=== PATIENT | female | born 1940 | race Caucasian/White ===

== ENCOUNTER → 2016-09-19 | Outpatient (CLI) | payer MEDICARE, OTHER ==
[~2016-09-19] MED LIST: ACID REDUCER 1150 MG PO; CLARITIN10 M2 PO; CYMBALTA 30 MG30 MG PO; HYDROCHLOROTHIA25 MG PO; KLOR-CON M1010 MEQ PO; LEVOTHYROXINE112 MCG PO; NORCO 5-325 TA1 EACH PO; OSTEO BI-FLEX1 EAC1 PO; PRAVACHOL20 MG PO; ROSADAN45 G1 TOP; TRAMADOL HCL50 MG PO; TRIAMCINOLONE A15 GM TP; TYLENOL 500 MG500 MG PO; TYLENOL PM EX-1 EACH PO; XARELTO10 MG PO
[2016-09-19 11:11] LABS: HEMOGLOBIN 11.6 gm/dl (12.3-15.3); RED BLOOD COUNT 4.07 M/UL (4.00-5.10); WHITE BLOOD COUNT 5.5 K/UL (4.5-11.0)
[2016-09-19 11:39] LABS: BUN/CREATININE RATIO 18 (0-10)
== END ==
LOC: EDSTATUS 10:00 → OPSV2 10:00
PROVIDERS: Orthopaedic Surgery
DX: Z01.810 Encounter for preprocedural cardiovascular examination (principal); Z01.812 Encounter for preprocedural laboratory examination; M17.12 Unilateral primary osteoarthritis, left knee
CPT/HCPCS: 36415; 71020; 80048; 81001; 85025; 87081; 93005

== ENCOUNTER 2016-10-02 07:45 | Inpatient (IN) | payer MEDICARE, OTHER ==
[~2016-10-02] VITALS: Ht 175.3 cm; Wt 79.4 kg
[2016-10-02] MEDS ORDERED: CYMBALTA 30 MG30 MG PO (10:45)
[2016-10-02] MEDS ORDERED: TYLENOL PM EX-1 EACH PO (10:45)
[2016-10-02] MEDS ORDERED: KLOR-CON M1010 MEQ PO (10:46)
[2016-10-02] MEDS ORDERED: TRAMADOL HCL50 MG PO (10:47)
[2016-10-02] MEDS ORDERED: ACID REDUCER 1150 MG PO (10:47)
[2016-10-02] MEDS ORDERED: CLARITIN10 M2 PO (10:47)
[2016-10-02] MEDS ORDERED: LEVOTHYROXINE112 MCG PO (10:48)
[2016-10-02] MEDS ORDERED: HYDROCHLOROTHIA25 MG PO (10:48)
[2016-10-02] MEDS ORDERED: TRIAMCINOLONE A15 GM TP (10:49)
[2016-10-02] MEDS ORDERED: ROSADAN45 G1 TOP (10:49)
[2016-10-02] MEDS ORDERED: PRAVACHOL20 MG PO (10:50)
[2016-10-02] MEDS ORDERED: OSTEO BI-FLEX1 EAC1 PO (10:51)
[2016-10-02] MEDS ORDERED: TYLENOL 500 MG500 MG PO (10:51)
[2016-10-03 06:50] LABS: RED BLOOD COUNT 2.84 M/UL (4.00-5.10); WHITE BLOOD COUNT 7.6 K/UL (4.5-11.0)
[2016-10-03 07:24] LABS: BUN/CREATININE RATIO 21 (0-10)
[2016-10-04 05:31] LABS: HEMOGLOBIN 8.5 gm/dl (12.3-15.3); RED BLOOD COUNT 3.04 M/UL (4.00-5.10); WHITE BLOOD COUNT 7.8 K/UL (4.5-11.0)
[2016-10-04 05:50] LABS: BUN/CREATININE RATIO 16 (0-10)
[2016-10-04] MEDS ORDERED: XARELTO10 MG PO (12:33)
[2016-10-04] MEDS ORDERED: NORCO 5-325 TA1 EACH PO (12:33)
== END 2016-10-04 14:15 | disposition home health service (06) | DRG 470 ==
LOC: ZOBSOF 10:02 → M/S 18:18
PROVIDERS: ADMIT Orthopaedic Surgery
PROC: 0SRD0J9 Replacement of Left Knee Joint with Synthetic Substitute, Cemented, Open Approach (ICD-10-PCS; principal; 2016-10-02 11:15)
DX: M17.12 Unilateral primary osteoarthritis, left knee (principal); D62 Acute posthemorrhagic anemia; I10 Essential (primary) hypertension; K21.9 Gastro-esophageal reflux disease without esophagitis; E07.9 Disorder of thyroid, unspecified; M41.9 Scoliosis, unspecified; M79.7 Fibromyalgia; R11.0 Nausea; Z79.899 Other long term (current) drug therapy; Z88.1 Allergy status to other antibiotic agents
CPT/HCPCS: 36415; 73560; 80048; 85025; 86850; 86900; 86901; 97110; 97116; 97530; 97535; C1776; J0171; J0735; J1885; J2274; J2405; J2550; J2795; J7050; J7120